=== PATIENT | male | born 1945 | race African-American/Black ===

== ENCOUNTER 2020-01-10 17:21 | Emergency (ER) | payer MEDICARE, OTHER ==
[~2020-01-10] VITALS: Ht 177.8 cm; Wt 75.0 kg
[~2020-01-10 17:21] MED LIST: ALAVERT10 M1 PO; ASPIRIN 32325 MG/TAB PO; BENAZEPRIL PO; CLOPIDOGREL PO; GUAIFENESIN PO; HCTZ 25MG25 MG PO; LEVITRA PO; LOPRESSOR 550 MG/TAB PO; LOPRESSOR50 MG PO; LOTENSIN 1010 MG/TAB PO; PLAVIX 75MG TAB75 MG PO; UROXATRAL10 M1 PO; ZETIA 10MG TAB10 MG PO; ZETIA10 MG PO; ZOCOR 80MG80 MG PO
[2020-01-10 17:35] VITALS: TEMP 97.6
[2020-01-10 18:09] LABS: BASO # 0.1 (0.0-0.2); BASO % 0.8 % (0.0-2.0); EOS # 0.1 (0.0-0.7); GRAN # 3.1 (1.4-6.5); GRAN % 48.8 % (42.2-75.2); HEMATOCRIT 37.3 % (42.0-52.0); HEMOGLOBIN 13.4 g/dl (13.5-18.0); LYMPH # 2.4 (1.2-3.4); LYMPH % 37.7 % (20.0-51.0); MEAN CELL VOLUME 92 fl (80.0-100.0); MEAN CORPUSCULAR HEMOGLOBIN 33 pg (27.0-31.0); MEAN CORPUSCULAR HGB CONC 36 g/dl (33.0-37.0); MEAN PLATELET VOLUME 10.1 fl (7.4-10.4); MONO # 0.7 (0.1-0.6); MONO % 11.2 % (1.7-9.3); PLATELET COUNT 271 K/mm3 (130-400); RED BLOOD COUNT 4.06 M/mm3 (4.20-5.60); REDCELL DISTRIBUTION WIDTH-CV 11.4 % (11.5-14.5)
[2020-01-10 18:13] LABS: INR 1.1 (0.8-3.0); PROTHROMBIN TIME 12.6 SECONDS (9.7-12.8)
[2020-01-10 18:16] LABS: PARTIAL THROMBOPLASTIN TIME 33.8 SECONDS (26.0-37.0)
[2020-01-10 18:19] LABS: ALANINE AMINOTRANSFERASE 13 U/L (4-49); ALBUMIN 4.6 gm/dL (3.5-5.0); ALKALINE PHOSPHATASE 65 U/L (50-136); ANION GAP 10 mmol/L (7-16); AST,SGOT 27 U/L (15-37); BLOOD UREA NITROGEN 18 mg/dL (9-20); CALCIUM 9.4 mg/dL (8.4-10.2); CARBON DIOXIDE 26 mmol/L (22-30); CHLORIDE 101 mmol/L (98-107); GLUCOSE 106 mg/dL (74-106); POTASSIUM 3.6 mmol/L (3.4-5.0); SODIUM 137 mmol/L (137-145); TOTAL PROTEIN 8.2 gm/dL (6.4-8.2)
[2020-01-10 18:31] LABS: TROPONIN-I < 0.012 ng/mL (0.000-0.035)
[2020-01-10] MEDS ORDERED: ASPIRIN 81M81 MG/TA2 PO (18:44)
[2020-01-10] MEDS ORDERED: MASON NATURAL2000 IU PO (18:45)
[2020-01-10] MEDS ORDERED: COMBIGAN 0.2%-0.5 ML OS (18:46)
[2020-01-10] MEDS ORDERED: PROCARDIA10 MG PO (18:47)
[2020-01-10] MEDS ORDERED: XALATAN EYE DROPS OD (18:48)
[2020-01-10] MEDS ORDERED: PRED MILD OD (18:49)
[2020-01-10] MEDS ORDERED: VIAGRA 25MG TAB25 MG PO (18:51)
[2020-01-10] MEDS ORDERED: ULTRAM 50MG TAB50 MG PO (18:51)
[2020-01-10 21:12] VITALS: BP 139/83; PULSE 53
== END 2020-01-10 21:15 | disposition home or self-care (01) ==
LOC: COL.ER 17:21
PROVIDERS: Family Medicine
DX: I25.10 Atherosclerotic heart disease of native coronary artery without angina pectoris (principal); I10 Essential (primary) hypertension; Z95.1 Presence of aortocoronary bypass graft; Z79.02 Long term (current) use of antithrombotics/antiplatelets; Z79.82 Long term (current) use of aspirin

== ENCOUNTER 2020-05-16 01:59 | Inpatient (IN) | payer MEDICARE, OTHER ==
[~2020-05-16] VITALS: Ht 177.8 cm; Wt 75.2 kg
[~2020-05-16 01:59] MED LIST changes: +ASPIRIN 81M81 MG/TA2 PO; +COMBIGAN 0.2%-0.5 ML OS; +MASON NATURAL2000 IU PO; +PRED MILD OD; +PROCARDIA10 MG PO; +ULTRAM 50MG TAB50 MG PO; +VIAGRA 25MG TAB25 MG PO; +XALATAN EYE DROPS OD
--- NOTE | 2020-05-16 03:00 | NUR ---
Arrived to room 311 via [facility] from [place]. Admission assessment complete. VS stable. A&Ox3. Rating pain 3/10 on pain scale to abdomen described as intermittent sharpness-denies need for intervention. Admission orders complete. Oriented to room and policy. Call light in reach. will monitor.
[2020-05-16 03:01] VITALS: BP 157/67; PULSE 61; TEMP 97.9
--- NOTE | 2020-05-16 03:30 | NUR ---
Dr Nicole called at this time to verify if NG needed to be at [facility]. New orders received.
--- NOTE | 2020-05-16 04:07 | NUR ---
Patient valuables envelope placed in [employer] safe at this time.
[2020-05-16] MEDS ORDERED: LOTENSIN 1010 MG/TAB PO (04:42)
[2020-05-16 07:06] VITALS: BP 162/76; PULSE 65; TEMP 97.9
--- NOTE | 2020-05-16 10:25 | NUR ---
Assessment completed, alert/oriented, vital signs stable, reports pain is more tolerable now, denies N/V and tolerating NG to [facility] well, small amount of ouput from NG, abdomen is firm and BS hypoactive throughout, denies passing flatus, encouraged ambultaion and will clamp NG so he can get up and do so, heart RRR, lung SCTA/no reps.difficulty noted, NPO, IVF infusing, denies other needs
[2020-05-16 11:31] LABS: ALBUMIN 4.2 gm/dL (3.5-5.0); BILIRUBIN,TOTAL 1.2 mg/dL (0.0-1.0); CALCIUM 9.2 mg/dL (8.4-10.2); CREATININE, serum 0.92 (0.66-1.25); POTASSIUM 3.9 mmol/L (3.4-5.0); TOTAL PROTEIN 7.7 gm/dL (6.4-8.2)
[2020-05-16 11:32] VITALS: BP 142/65; PULSE 55; TEMP 97.7
--- NOTE | 2020-05-16 11:41 | NUR ---
SW met with patient to complete intake. Patient provides that he lives in [place], [place] alone. Patient provides that his primary contact is his mady Corea [phone] and states that he does not have any other people to list at this time. Patient provides that he does not utilize any DME at this time and is independent with ADL's. Patient states that his PCP is Dr. Bourgeois and he utilizes [facility] in [place] to obtain his medications, and states that he is able to afford his medications at this time. Patient provides that his daughter is appointed as his DPOA-HC. Patient provides that he does not utilize any HH services at this time and plans to go back to his home in [place]. SW will continue to follow.
[2020-05-16 11:57] LABS: BASO % 0.3 % (0.0-2.0); EOS # 0.1 (0.0-0.7); EOS % 0.7 % (0-4.0); GRAN # 4.4 (1.4-6.5); GRAN % 61.3 % (42.2-75.2); HEMATOCRIT 38.9 % (42.0-52.0); HEMOGLOBIN 13.1 g/dl (13.5-18.0); LYMPH # 1.9 (1.2-3.4); LYMPH % 26.4 % (20.0-51.0); MEAN CELL VOLUME 98 fl (80.0-100.0); MEAN CORPUSCULAR HEMOGLOBIN 33 pg (27.0-31.0); MEAN CORPUSCULAR HGB CONC 34 g/dl (33.0-37.0); MEAN PLATELET VOLUME 10.7 fl (7.4-10.4); MONO # 0.8 (0.1-0.6); MONO % 11.2 % (1.7-9.3); PLATELET COUNT 210 K/mm3 (130-400); RED BLOOD COUNT 3.97 M/mm3 (4.20-5.60); REDCELL DISTRIBUTION WIDTH-CV 12.2 % (11.5-14.5)
[2020-05-16 12:04] LABS: INR 1.2 (0.8-3.0); PROTHROMBIN TIME 13.1 SECONDS (9.7-12.8)
[2020-05-16 15:42] VITALS: BP 161/62; PULSE 53; TEMP 97.5
--- NOTE | 2020-05-16 18:15 | NUR ---
NG clamped and patient is tolerating CL diet well, he is wanting NG out and I will call and discuss this with him
[2020-05-16 20:25] VITALS: BP 174/60; PULSE 50; TEMP 97.6
--- NOTE | 2020-05-16 20:30 | NUR ---
Initial shift assessment done- pleasant, alert/oriented, Up in room and rizvi-- steady on feet-- tolerating full liquids without nausea, states passing gas --given some orange sherbet as per requests.
[2020-05-17 00:30] VITALS: BP 121/51; PULSE 50; TEMP 97.8
[2020-05-17 04:10] VITALS: BP 126/51; PULSE 55; TEMP 97.5
--- NOTE | 2020-05-17 06:24 | NUR ---
Slept fair all night--Up in [place]zvi walking this morning- no requests, VSS
[2020-05-17 06:48] LABS: ALBUMIN 3.7 gm/dL (3.5-5.0); BILIRUBIN,TOTAL 1.2 mg/dL (0.0-1.0); CALCIUM 9.2 mg/dL (8.4-10.2); CREATININE, serum 0.93 (0.66-1.25); POTASSIUM 3.7 mmol/L (3.4-5.0); TOTAL PROTEIN 6.9 gm/dL (6.4-8.2)
[2020-05-17 07:36] VITALS: BP 120/67; PULSE 56; TEMP 97.7
[2020-05-17 08:10] LABS: BASO % 0.7 % (0.0-2.0); EOS # 0.2 (0.0-0.7); EOS % 3.8 % (0-4.0); GRAN # 1.9 (1.4-6.5); GRAN % 45.6 % (42.2-75.2); HEMATOCRIT 37.5 % (42.0-52.0); HEMOGLOBIN 12.6 g/dl (13.5-18.0); LYMPH # 1.5 (1.2-3.4); LYMPH % 34.8 % (20.0-51.0); MEAN CELL VOLUME 97 fl (80.0-100.0); MEAN CORPUSCULAR HEMOGLOBIN 33 pg (27.0-31.0); MEAN CORPUSCULAR HGB CONC 34 g/dl (33.0-37.0); MEAN PLATELET VOLUME 11.3 fl (7.4-10.4); MONO # 0.6 (0.1-0.6); MONO % 14.9 % (1.7-9.3); PLATELET COUNT 201 K/mm3 (130-400); RED BLOOD COUNT 3.86 M/mm3 (4.20-5.60); REDCELL DISTRIBUTION WIDTH-CV 12.1 % (11.5-14.5)
--- NOTE | 2020-05-17 10:17 | NUR ---
Initial visit; Patient thanked Die Cast Engineer for offering encouragemtnt and God's blessings.
[2020-05-17 11:50] VITALS: BP 128/63; PULSE 51; TEMP 97.6
--- NOTE | 2020-05-17 13:25 | NUR ---
Secretarial Stenographer collaborated with DAVID Mendoza who advised patient has been walking in the halls and is independent. Patient to discharge home today.
--- NOTE | 2020-05-17 14:34 | NUR ---
Valuables envelope retrieved from safe and returned to DAVID Mendoza.
--- NOTE | 2020-05-17 14:54 | NUR ---
Patient alert and oriented. he report having one bowel movement this morning. denies any pain. Dr Nicole gave phone order to advance diet from full liquid to bland. Patient tolerate bland diet well. INT discontined. patient belonging was recovered by House superviso, Linda. Belong was returned to patient. Patient confirm he has all his belongings. provided patient with education on Bowel obstruction, diets and followup appt.
== END 2020-05-17 16:00 | disposition home or self-care (01) | DRG 390 ==
LOC: MEDICAL 01:59
PROVIDERS: ADMIT Surgery
DX: K56.600 Partial intestinal obstruction, unspecified as to cause (principal); I25.10 Atherosclerotic heart disease of native coronary artery without angina pectoris; I10 Essential (primary) hypertension; E78.5 Hyperlipidemia, unspecified; H40.9 Unspecified glaucoma; Z95.1 Presence of aortocoronary bypass graft; Z79.82 Long term (current) use of aspirin; Z87.891 Personal history of nicotine dependence
CPT/HCPCS: A9284; J2270; J7120